=== PATIENT | male | born 1990 | race African-American/Black ===

== ENCOUNTER 2019-12-23 23:38 | Emergency (ER) | payer SELFPAY ==
[~2019-12-23] VITALS: Ht 175.3 cm; Wt 68.0 kg
[2019-12-24 01:55] VITALS: BP 135/88
[2019-12-24] MEDS ORDERED: methylPREDNISolone SOD SUCC 125 MG/2 ML VL IM ONE (02:15)
[2019-12-24] MEDS ORDERED: KETOROLAC TROMETH 60MG/2ML VIAL IM ONE (02:15)
== END 2019-12-24 02:32 | disposition home or self-care (01) ==
LOC: ER 23:44
DX: S43.402A Unspecified sprain of left shoulder joint, initial encounter (principal); F12.10 Cannabis abuse, uncomplicated; M54.9 Dorsalgia, unspecified; X58.XXXA Exposure to other specified factors, initial encounter; Y93.89 Activity, other specified; Y99.8 Other external cause status; Y92.89 Other specified places as the place of occurrence of the external cause
CPT/HCPCS: 99283; J1885; J2930